=== PATIENT | female | born 1955 | race Caucasian/White ===

== ENCOUNTER 2017-06-14 05:22 | Day surgery (SDC) | payer BC, OTHER ==
[2017-06-07 13:39] LABS: URINE BLOOD NEGATIVE (Negative); URINE CLARITY CLEAR; URINE COLOR YELLOW; URINE GLUCOSE-RANDOM* NEGATIVE (Negative); URINE KETONES NEGATIVE (Negative); URINE LEUKOCYTES-REFLEX NEGATIVE (Negative); URINE NITRITE-REFLEX NEGATIVE (Negative); URINE PROTEIN (DIPSTICK) NEGATIVE (Negative); URINE SPECIFIC GRAVITY 1.015 (1.005-1.035); URINE UROBILINOGEN 0.2 E.U./dl (0.2-1.0)
[2017-06-07 13:44] LABS: URINE BILIRUBIN NEGATIVE (Negative)
[~2017-06-14] VITALS: Ht 165.1 cm; Wt 81.6 kg
--- NOTE | ~2017-06-14 | O ---
[facility] [place] [address] OPERATIVE REPORT Name: ARI MUNIZ Room #: [facility] James#: [id number] Admission: 06/14/17 Attend Phys: Yonny Perales MD Discharge: 06/14/17 Date of : 53 Report #: [id number] THIS REPORT FOR: //name// CC: FAM unknown Yonny Perales DATE OF SERVICE: 06/14/2017 PREOPERATIVE DIAGNOSIS: Left knee medial compartment osteoarthritis. POSTOPERATIVE DIAGNOSIS: Left knee medial compartment osteoarthritis. PROCEDURE: Left unicompartmental knee arthroplasty. SURGEON: Yonny Perales M.D. LOADER MACHINE: Donna Coon PA-C. INDICATIONS FOR LOADER MACHINE: Throughout the case, extensive retraction and manipulation of the knee was required. This was afforded to me by my grants and contracts assistant. ANESTHESIA: Spinal with an adductor canal block. IMPLANTS: [place] twin peg size small femur, a size 8 tibia and a size 6 polyethylene. TOURNIQUET TIME: 57 minutes. ESTIMATED BLOOD LOSS: 20 mL. COMPLICATIONS: None. SPECIMENS: None. CONDITION UPON LEAVING THE OPERATING ROOM: Stable. INDICATION FOR PROCEDURE: The patient is a 61-year-old female who has had medial-sided left knee pain. She had an x-ray showing her to have medial compartment osteoarthritis and after discussion with her, she elected for a medial compartment arthroplasty. DESCRIPTION OF PROCEDURE: Risks, benefits, alternatives and complications were discussed in detail with the patient, including but not limited to, risk of anesthesia; risk of damage to nerves, arteries or blood vessels; risk for infection or bleeding; risk for continued knee pain and need for reoperation. Informed consent was obtained from the patient. Left knee was appropriately [facility] [address] [place] [address] OPERATIVE REPORT Name: ARI MUNIZ Room #: DEP [facility] M.R.#: [id number] Admission: 06/14/17 Attend Phys: Yonny Perales MD Discharge: 06/14/17 Date of : 53 Report #: [id number] marked in the preoperative holding area. IV Ancef was given for preoperative antibiotics. She was brought to the operating room and placed on the operating room table. Spinal anesthesia was induced without complication. She was laid on the operating room table and a tourniquet was placed on the left thigh. Left lower extremity was prepped and draped in normal sterile fashion. Timeout was performed properly identifying the patient and procedure as well as the instrumentation and implants. All in the operating room were in agreement. Left lower extremity was exsanguinated, tourniquet was inflated. Tourniquet time was 57 minutes. Standard medial approach to the knee was made with 10 blade through the skin. Dissection was taken down sharply to the fascia and deep flaps were developed medially and laterally. Fresh 10 blade was used to make a medial parapatellar arthrotomy and the knee was inspected. There was osteoarthritic change of the medial compartment that was moderate. The lateral compartment was intact. 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 It was decided to proceed with medial compartment arthroplasty. Tibial resection guide was pinned in place and tibial resection was made. This was sized and found to be a size A. The size A trial was placed, and the flexion gap was measured to be a 5. Intramedullary alignment was used for the femur and drill was used to gain access to the canal of the femur. A femoral guide for the twin peg system was then linked to the intramedullary brooke and drill holes for the twin peg system were made. Posterior femoral resection was made and the zero spigot was placed and the femur was milled. The femur and tibial trials were then placed and flexion gap was measured to be a 5, extension gap was a 2. The 3 spigot was placed and the femur was milled again. After this, flexion and extension gaps were then well balanced at a 5. After this keel cut for the tibia was made, a keeled tibial trial was placed. The anterior chamfer was removed from the femur, and the femoral trial was placed. This was then trialed with a size 5 poly trial and then a size 6. The size 6 was felt to have a better fit than the 5, as the 5 was easily removable. After this, trial components were removed. Bony ends were thoroughly irrigated with normal saline. A final size 8 tibia and a size small femur were cemented in place using standard cementation techniques. While the cement was curing, a periarticular injection consisting of morphine, ropivacaine, epinephrine and Toradol was placed around the knee joint. After the cement cured, this was trialed with a size 5 and then a size 6 polyethylene. The size 6 had a better fit and a final size 6 polyethylene was placed. Wound was thoroughly irrigated with normal saline. A gram of vancomycin was placed deep in the joint. Fascia was closed with 0 Vicryl, skin was closed with 2-0 Vicryl, 3-0 Monocryl and a CLOVIS dressing was applied. The patient tolerated this procedure well and went to the recovery room under the care of anesthesia postoperatively. <ELECTRONICALLY SIGNED> By: Yonny Perales MD 06/20/17 1448 [id number] Yonny Perales MD /nt
--- NOTE | ~2017-06-14 | EKG ---
[place] [address] [place] [address] ELECTROCARDIOGRAM REPORT Name: ARI MUNIZ Room #: PRE [facility]..#: [id number] Admission: Attend Phys: Yonny Perales MD Discharge: Date of : 53 Report #: [id number] THIS REPORT FOR: //name// [facility] Test Date: 2017-06-07 Test Time: 13:06:38 Pat Name: ARI MUNIZ Department: Room: Gender: F Chief Procurement Officer: GARIMA MON : 1955 Requested By: Yonny Perales Order Number: [id number] MD: Dae Le Measurements Intervals [place] Rate: 61 P: 39 LA: 162 QRS: -3 QRSD: 95 T: 21 QT: 385 QTc: 388 Interpretive Statements Sinus rhythm Abnormal R-wave progression, early transition Baseline wander in lead(s) V5,V6 Compared to ECG 06/27/1995 17:05:00 No significant changes Electronically Signed On 06-08-2017 8:20:44 SIGN PAINTER HELPER by Dae Le [email or web address] <ELECTRONICALLY SIGNED> By: Dae Le MD, [facility] 06/08/17 0820 1306 130 Dae Le MD, [facility] /EPI
[~2017-06-14 05:22] MED LIST: ALLEGRA ALLERG180 MG PO; CALCIUM500 MG PO; CENTRUM SILVER1 EAC4 PO; ESTRADIOL1 EAC7 TRANSDERM; ETODOLAC PO; FLUTICASONE PRO16 GM NASAL; SERTRALINE HCL100 MG PO; TRAMADOL 50 MG50 MG PO; VITAMIN D1000 UNI1 PO
[2017-06-14 07:15] VITALS: BP 138/83
[2017-06-14 10:10] VITALS: BP 118/76
[2017-06-14 10:30] VITALS: BP 135/81
[2017-06-14 11:00] VITALS: BP 117/81
[2017-06-14 12:00] VITALS: BP 129/84
[2017-06-14 14:42] VITALS: BP 129/84
== END 2017-06-14 15:30 | disposition home or self-care (01) ==
LOC: OR 05:22 → TBA 05:22 → PRE 05:58 → 4N 09:02 → OR 09:26 → 4N 10:14 → PRE 12:33 → EDSTATUS 12:54 → OR 12:57 → PAC 14:35 → EDSTATUS 14:37 → PRE 14:38 → ENTRNSPT 15:24 → EDTRNSPTSTS 15:30 → OR 15:30
PROVIDERS: Orthopaedic Surgery
DX: M17.12 Unilateral primary osteoarthritis, left knee (principal); M22.42 Chondromalacia patellae, left knee; F32.89 Other specified depressive episodes; F41.8 Other specified anxiety disorders; Z90.710 Acquired absence of both cervix and uterus; Z98.890 Other specified postprocedural states; Z79.899 Other long term (current) drug therapy
CPT/HCPCS: 10790; 50010; 50101; 50415; 51130; 51225; 51771; 52056; 53078; 53370; 54118; 55262; 56527; 56528; 57095; 57103; 62110; 62850; 64042; 70005